=== PATIENT | male | born 1940 | race Caucasian/White ===

== ENCOUNTER 2020-10-27 17:16 | Emergency (ER) | payer MEDICARE, SELFPAY ==
[2020-10-27] VITALS (16 sets, daily range): BP systolic 90–149; BP diastolic 50–81; PULSE 70–98; RESP 12–31; TEMP 35.2; O2SAT 92–100; BMI 22.1
[2020-10-27] MEDS: SODIUM CHLORIDE 0.9% 1,000 ML 1000 ML IV (17:45)
--- NOTE | 2020-10-27 18:04 | ED.WEAKNESS ---
HPI - Weakness General Chief complaint: Weakness Stated complaint: Generalized weakness Time Seen by Provider: 10/27/20 17:24 Source: EMS Mode of arrival: EMS Limitations: altered mental status (confusion) History of Present Illness HPI Narrative: This is an 80-year-old male comes emergency department last seen normal 2 days ago. He is accompanied by his neighbor. Patient [place]. She states that she saw him 2 days ago at that time he was not jaundiced and he has some baseline confusion but is significantly more confused today. They found him on the floor at his home. Patient and his friend state that the he just fell today. Patient does currently have any complaints but told staff earlier that he has felt short of breath. Patient is significantly jaundiced. He currently does not have any complaint of pain at this time. He did tell his neighbor that he had abdominal pain and indicated it was his right side earlier today. Patient currently denies any chest pain, shortness of breath, neck or back pain. He has denied any nausea or vomiting. He has denied any issues with bowel movements or urination. Patient is able to tell me he is at the hospital, he is incorrect and thinks he is at the next down over. Patient states he has not seen a physician in many years and his neighbor believes this to be true. She is not aware of any medical conditions that he has patient states had a tonsillectomy but denies any prior surgeries. He did smoke but quit many years ago. Denies any use of alcohol in ?a long time?. No recreational drugs. 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 He has 2 daughters 1 whom lives locally in [facility]. Per patient's neighbor they have not been in contact for approximately 15 years patient states he does not have anyone that he has designated for a legal proxy or to help make decisions. Related Data Home Medications Medication Instructions Recorded Confirmed No Known Home Medications 10/27/20 10/28/20 Allergies Allergy/AdvReac Type Severity Reaction Status Date / Time No Known Drug Allergies Allergy Verified 10/27/20 17:30 Review of Systems Review of Systems ROS Unobtainable: All systems reviewed & are unremarkable except as noted in HPI and below Patient History Surgical History (Updated 10/27/20 @ 18:23 by Margarita Jacome DO) History of tonsillectomy Social History Smoking Status: Former smoker Smoking Status: Former smoker alcohol intake frequency: other Substance Use Type: does not use Exam Narrative Exam Narrative: GEN: Cachectic appearing jaundiced male, alert and oriented to self and somewhat to location (he knows he is in the hospital but things he is in a town close to [place]), patient appears to be in moderate distress. HEENT: Atraumatic, pupils are equal round reactive to light, extraocular movements are intact, positive for scleral icterus, nares are clear, patient has scleral icterus. He has dry mucous membranes. HEART: Regular rate and rhythm without murmur, clicks, rubs. Pulses are equal in upper and lower extremities LUNGS:Lungs clear to auscultation, no wheezes, rales, crackles, chest moves symmetrically, no tachypnea. ABD:bowel sounds normal, abdomen is small to moderately distended but feels very full and tight, non-tender, no guarding, rebound, rigidity, no masses noted, no hepatosplenomegaly appreciated but difficult to palpate. :No CVA tenderness MSCL: Non-tender, no muscle atrophy, full range of motion of upper extremities. NEURO:CN 2-12 intact, sensation normal SKIN: Jaundiced Initial Vital Signs Initial Vital Signs: Vital Signs Temperature 95.4 F L 10/27/20 17:21 Pulse Rate 83 10/27/20 17:21 Respiratory Rate 18 10/27/20 17:21 Blood Pressure 149/81 H 10/27/20 17:21 Pulse Oximetry 98 10/27/20 17:21 Scores GCS Hernando coma scale eye opening: Spontaneous Gita coma scale verbal response: Confused Hernando coma scale motor response: Obey commands Hernando coma scale total score: 14 Course Orders Ordered: ED Orders 10/27/20 18:19 CT abdomen pelvis wo con Stat 10/27/20 18:20 COVID19 - ADMIT ([employer] swab/PCR) Stat 10/27/20 19:35 US abdomen limited Stat 10/27/20 20:40 Ictotest Urine Stat Urinalysis and Microscopic Stat Urine Culture Stat 10/27/20 22:25 Basic Metabolic Panel Stat Lactate (Lactic Acid) Stat Discontinued Medications Albuterol (Albuterol 2.5 Mg/3 Ml Neb (Adult)) 2.5 mg INH NOW ONE Stop: 10/27/20 22:53 Last Admin: 10/27/20 23:05 Dose: 2.5 mg Documented by: RAMON Dextrose (Dextrose 50 % In Water 25 Gm/50 Ml Syringe) 25 gm IV NOW ONE Stop: 10/27/20 22:53 Last Admin: 10/27/20 23:05 Dose: 25 gm Documented by: RAMON Sodium Chloride (Normal Saline 0.9%) 1,000 mls @ 1,000 mls/hr IV BOLUS ONE Stop: 10/27/20 18:23 Last Infusion: 10/27/20 19:33 Dose: 0 mls/hr Documented by: Admin: 10/27/20 17:45 Dose: 1,000 mls/hr Documented by: STEPAN Sodium Chloride (Normal Saline 0.9%) 1,000 mls @ 100 mls/hr IV CONT ZEKE Last Infusion: 10/28/20 00:01 Dose: 0 mls/hr Documented by: Admin: 10/27/20 20:02 Dose: 100 mls/hr Documented by: STEPAN Piperacillin Sod/Tazobactam (Sod 4.5 gm/ Sodium Chloride) 100 mls @ 200 mls/hr IV NOW ONE Stop: 10/27/20 19:36 Last Infusion: 10/27/20 20:37 Dose: 0 mls/hr Documented by: Admin: 10/27/20 20:05 Dose: 200 mls/hr Documented by: STEPAN Calcium Gluconate 4.65 meq/ (Sodium Chloride) 60 mls @ 180 mls/hr IV NOW ONE Stop: 10/27/20 23:10 Last Infusion: 10/28/20 00:00 Dose: 0 mls/hr Documented by: Admin: 10/27/20 23:12 Dose: 180 mls/hr Documented by: RAMON Insulin Human Regular (Insulin Regular 100 Unit/Ml 3 Ml Vial) 10 unit IV NOW ONE Stop: 10/27/20 22:53 Last Admin: 10/27/20 23:27 Dose: 10 unit Documented by: RAMON Cosigned by: STEPAN Lidocaine HCl (Lidocaine 2% (Glydo) 6 Ml Gel) 6 ml TOP NOW ONE Stop: 10/27/20 19:27 Last Admin: 10/27/20 19:33 Dose: 6 ml Documented by: STEPAN Sodium Polystyrene Sulfonate (Sodium Polystyrene Sulfon/Sorb 15 Gm/60 Ml Cup) 15 gm PO NOW ONE Stop: 10/27/20 22:52 Last Admin: 10/27/20 23:27 Dose: 15 gm Documented by: STEPAN Reevaluation(s) Reevaluation #1: Daughters at bedside. They state they are actually supposed to meet with the lower tomorrow for guardianship. They have seen him in the last month. They state month ago he was skinning and appeared pale but was not jaundiced at that time. They state there is also significant change in his mental status. Time: 20:35 Consultations Consultation #1: Dr. Witt hospitalist at [facility]. Feels patient would be better at larger facility. They have nephrology but if patient wants more aggressive management may need additional interventions they do not have available. Time: 20:58 Consultation #2: Dr. Pryor, from Gastroenterology at [place]. We reviewed patient's labs, imaging and findings from today as well as recent history and physical exam. Mixed picture at this time but feels patient would be appropriate to transfer to [facility]. He is willing to consult on the patient. States that they would prefer to draw any additional labs there to facilitate faster workup. Consultation #3: Dr. Varner, hospitalist at [facility]. Reviewed patients labs, imaging and gastroenterology input. He would like repeat lactate and BMP before accepting for floor. Patient may require ICU care. Called back with lactate trending downward but potassium upward at 5.8 from 5.6. Plan to consult for transfer to ICU. Time: 22:17 Additional Consultation(s): [id number]-Dr. Raygoza accepts for ICU at [facility]. Reviewed labs, imaging and recent history. Vital Signs Vital signs: Vital Signs - 8 hr 10/27/20 19:30 10/27/20 19:37 10/27/20 20:00 Pulse Rate 85 84 84 Respiratory Rate 31 H Blood Pressure 104/55 L Pulse Oximetry 100 10/27/20 21:59 10/27/20 22:00 10/27/20 22:01 Pulse Rate 82 Respiratory Rate Blood Pressure 104/56 L 101/59 L Pulse Oximetry 10/27/20 22:30 10/27/20 23:00 04/09/21 23:07 Pulse Rate 87 86 70 Respiratory Rate 26 H 20 12 Blood Pressure 112/66 101/57 L Pulse Oximetry 99 98 99 10/27/20 23:30 10/28/20 00:00 10/28/20 00:30 Pulse Rate 98 H 98 H 96 H Respiratory Rate 28 H 26 H 25 H Blood Pressure 102/50 L 100/56 L 100/52 L Pulse Oximetry 99 100 98 10/28/20 01:00 Pulse Rate 97 H Respiratory Rate 34 H Blood Pressure 108/56 L Pulse Oximetry 93 MDM - Weakness Lab Data Attestation: I reviewed the patient's lab results. Result diagrams: 10/27/20 17:53 10/27/20 22:25 Labs: Lab Results 10/27/20 10/27/20 10/27/20 Range/Units 17:53 17:53 17:53 WBC 13.9 H (4.5-11.0) X10^3/uL RBC 4.12 L (4.5-5.9) X10^6/uL Hgb 8.6 L (13.5-17.5) g/dL Hct 30.4 L (41-53) % MCV 73.8 L (80-100) fL MCH 21.0 L (26-34) PG MCHC 28.4 L (30-36) % RDW 20.1 H (11.6-14.8) % Plt Count 404 H (150-400) X10^3/uL Neut % (Auto) Not Reportable Lymph % (Auto) Not Reportable [place] % (Auto) Not Reportable Eos % (Auto) Not Reportable Baso % (Auto) Not Reportable Lymph # (Auto) Not Reportable [place] # (Auto) Not Reportable Baso # (Auto) Not Reportable Total Counted 100 Seg Neutrophils % 58.0 (38-70) % Band Neutrophils % 28.0 H (3-7) % Lymphocytes % (Manual) 2.0 L (25-45) % Monocytes % (Manual) 9.0 (2-11) % Metamyelocytes % 3.0 H (-0) % Neutrophils # (Manual) 14350 H (2703-0804) /uL Nucleated RBCs 1 H ( - 0) #/Diff RBC Morphology See below Polychromasia 1+ H Hypochromasia 2+ H Microcytosis 2+ H PT (10.1-12.7) SECONDS INR (0.9-1.3) APTT (26.4-36.2) SECONDS Sodium 131 L (137-145) mmol/L Potassium 5.6 H (3.4-5.1) mmol/L Chloride 100 (98-107) mmol/L Carbon Dioxide 9 L* (22-32) mmol/L BUN 106 H* (9-20) mg/dL Creatinine 5.06 H (0.66-1.25) mg/dL Estimated GFR 11.1 L (>60) mL/min BUN/Creatinine Ratio 20.9 (6-22) Glucose 95 (80-110) mg/dL Lactate (0.7-2.1) mmol/L Calcium 8.7 (8.4-10.2) mg/dL Total Bilirubin 19.4 H (0.2-1.3) mg/dL AST 346 H (17-59) IU/L ALT 85 H (<50) IU/L Alkaline Phosphatase 773 H (38-126) U/L Ammonia 13 (9-30) umol/L Total Creatine Kinase (55-170) U/L CK-MB (CK-2) (<2.37) ng/mL CK-MB (CK-2) Rel Index (1.5-5.0) % Troponin I (0.01-0.034) ng/mL Total Protein 6.3 (6.3-8.2) g/dL Albumin 3.1 L (3.5-5.0) g/dL Globulin 3.2 (1.7-4.1) g/dL Albumin/Globulin Ratio 1.0 (1.0-2.8) Lipase (23-300) U/L Urine Color Urine Appearance Urine pH (4.5-8.0) Ur Specific [place] (1.000-1.035) Urine Protein (Negative) Urine Glucose (UA) (Negative) g/dL Urine Ketones (NEGATIVE) Urine Occult Blood (Negative) Urine Nitrate (Negative) Urine Bilirubin (NEGATIVE) Ur Bilirubin Confirm (Negative) Urine Urobilinogen (0.2) E.U./dL Ur Leukocyte Esterase (NEGATIVE) Urine RBC (0-5/HPF) Urine WBC (0-5/HPF) Ur Squamous Epith Cells (0-5/HPF) Amorphous Sediment Urine Bacteria (None) Granular Casts (None) Urine Mucus (Negative) Ur Culture Indicated? Salicylates (<20) mg/dL Acetaminophen < 10 L (10-30) ug/mL Ethyl Alcohol ( - 10) mg/dL SARS-CoV-2 (PCR) (Negative) 10/27/20 10/27/20 10/27/20 Range/Units 17:53 17:53 17:53 WBC (4.5-11.0) X10^3/uL RBC (4.5-5.9) X10^6/uL Hgb (13.5-17.5) g/dL Hct (41-53) % MCV (80-100) fL MCH (26-34) PG MCHC (30-36) % RDW (11.6-14.8) % Plt Count (150-400) X10^3/uL Neut % (Auto) Lymph % (Auto) [place] % (Auto) Eos % (Auto) Baso % (Auto) Lymph # (Auto) [place] # (Auto) Baso # (Auto) Total Counted Seg Neutrophils % (38-70) % Band Neutrophils % (3-7) % Lymphocytes % (Manual) (25-45) % Monocytes % (Manual) (2-11) % Metamyelocytes % (-0) % Neutrophils # (Manual) (0979-9264) /uL Nucleated RBCs ( - 0) #/Diff RBC Morphology Polychromasia Hypochromasia Microcytosis PT 16.9 H (10.1-12.7) SECONDS INR 1.5 H (0.9-1.3) APTT 29 (26.4-36.2) SECONDS Sodium (137-145) mmol/L Potassium (3.4-5.1) mmol/L Chloride (98-107) mmol/L Carbon Dioxide (22-32) mmol/L BUN (9-20) mg/dL Creatinine (0.66-1.25) mg/dL Estimated GFR (>60) mL/min BUN/Creatinine Ratio (6-22) Glucose (80-110) mg/dL Lactate 8.0 H* (0.7-2.1) mmol/L Calcium (8.4-10.2) mg/dL Total Bilirubin (0.2-1.3) mg/dL AST (17-59) IU/L ALT (<50) IU/L Alkaline Phosphatase (38-126) U/L Ammonia (9-30) umol/L Total Creatine Kinase 580 H (55-170) U/L CK-MB (CK-2) 9.74 H (<2.37) ng/mL CK-MB (CK-2) Rel Index 1.7 (1.5-5.0) % Troponin I < 0.012 (0.01-0.034) ng/mL Total Protein (6.3-8.2) g/dL Albumin (3.5-5.0) g/dL Globulin (1.7-4.1) g/dL Albumin/Globulin Ratio (1.0-2.8) Lipase 1791 H (23-300) U/L Urine Color Urine Appearance Urine pH (4.5-8.0) Ur Specific [place] (1.000-1.035) Urine Protein (Negative) Urine Glucose (UA) (Negative) g/dL Urine Ketones (NEGATIVE) Urine Occult Blood (Negative) Urine Nitrate (Negative) Urine Bilirubin (NEGATIVE) Ur Bilirubin Confirm (Negative) Urine Urobilinogen (0.2) E.U./dL Ur Leukocyte Esterase (NEGATIVE) Urine RBC (0-5/HPF) Urine WBC (0-5/HPF) Ur Squamous Epith Cells (0-5/HPF) Amorphous Sediment Urine Bacteria (None) Granular Casts (None) Urine Mucus (Negative) Ur Culture Indicated? Salicylates < 1.0 (<20) mg/dL Acetaminophen (10-30) ug/mL Ethyl Alcohol < 10 ( - 10) mg/dL SARS-CoV-2 (PCR) (Negative) 10/27/20 10/27/20 10/27/20 Range/Units 18:20 20:15 20:40 WBC (4.5-11.0) X10^3/uL RBC (4.5-5.9) X10^6/uL Hgb (13.5-17.5) g/dL Hct (41-53) % MCV (80-100) fL MCH (26-34) PG MCHC (30-36) % RDW (11.6-14.8) % Plt Count (150-400) X10^3/uL Neut % (Auto) Lymph % (Auto) [place] % (Auto) Eos % (Auto) Baso % (Auto) Lymph # (Auto) [place] # (Auto) Baso # (Auto) Total Counted Seg Neutrophils % (38-70) % Band Neutrophils % (3-7) % Lymphocytes % (Manual) (25-45) % Monocytes % (Manual) (2-11) % Metamyelocytes % (-0) % Neutrophils # (Manual) (8787-2992) /uL Nucleated RBCs ( - 0) #/Diff RBC Morphology Polychromasia Hypochromasia Microcytosis PT (10.1-12.7) SECONDS INR (0.9-1.3) APTT (26.4-36.2) SECONDS Sodium (137-145) mmol/L Potassium (3.4-5.1) mmol/L Chloride (98-107) mmol/L Carbon Dioxide (22-32) mmol/L BUN (9-20) mg/dL Creatinine (0.66-1.25) mg/dL Estimated GFR (>60) mL/min BUN/Creatinine Ratio (6-22) Glucose (80-110) mg/dL Lactate 6.6 H* (0.7-2.1) mmol/L Calcium (8.4-10.2) mg/dL Total Bilirubin (0.2-1.3) mg/dL AST (17-59) IU/L ALT (<50) IU/L Alkaline Phosphatase (38-126) U/L Ammonia (9-30) umol/L Total Creatine Kinase (55-170) U/L CK-MB (CK-2) (<2.37) ng/mL CK-MB (CK-2) Rel Index (1.5-5.0) % Troponin I (0.01-0.034) ng/mL Total Protein (6.3-8.2) g/dL Albumin (3.5-5.0) g/dL Globulin (1.7-4.1) g/dL Albumin/Globulin Ratio (1.0-2.8) Lipase (23-300) U/L Urine Color Dark yellow Urine Appearance Sl cloudy Urine pH 5.0 (4.5-8.0) Ur Specific [place] >=1.030 H (1.000-1.035) Urine Protein Trace H (Negative) Urine Glucose (UA) Negative (Negative) g/dL Urine Ketones Negative (NEGATIVE) Urine Occult Blood Trace-lysed (Negative) Urine Nitrate Negative (Negative) Urine Bilirubin 2+ H (NEGATIVE) Ur Bilirubin Confirm Positive H (Negative) Urine Urobilinogen 0.2 (0.2) E.U./dL Ur Leukocyte Esterase Trace H (NEGATIVE) Urine RBC 0-1/hpf (0-5/HPF) Urine WBC 1-5/hpf (0-5/HPF) Ur Squamous Epith Cells 0-1 /hpf (0-5/HPF) Amorphous Sediment 2+ Urine Bacteria Few (2-10) H (None) Granular Casts 0-1/lpf (None) Urine Mucus 2+ H (Negative) Ur Culture Indicated? Specimen cultured Salicylates (<20) mg/dL Acetaminophen (10-30) ug/mL Ethyl Alcohol ( - 10) mg/dL SARS-CoV-2 (PCR) Negative (Negative) 10/27/20 10/27/20 Range/Units 22:25 22:25 WBC (4.5-11.0) X10^3/uL RBC (4.5-5.9) X10^6/uL Hgb (13.5-17.5) g/dL Hct (41-53) % MCV (80-100) fL MCH (26-34) PG MCHC (30-36) % RDW (11.6-14.8) % Plt Count (150-400) X10^3/uL Neut % (Auto) Lymph % (Auto) [place] % (Auto) Eos % (Auto) Baso % (Auto) Lymph # (Auto) [place] # (Auto) Baso # (Auto) Total Counted Seg Neutrophils % (38-70) % Band Neutrophils % (3-7) % Lymphocytes % (Manual) (25-45) % Monocytes % (Manual) (2-11) % Metamyelocytes % (-0) % Neutrophils # (Manual) (6506-9810) /uL Nucleated RBCs ( - 0) #/Diff RBC Morphology Polychromasia Hypochromasia Microcytosis PT (10.1-12.7) SECONDS INR (0.9-1.3) APTT (26.4-36.2) SECONDS Sodium 133 L (137-145) mmol/L Potassium 5.8 H (3.4-5.1) mmol/L Chloride 102 (98-107) mmol/L Carbon Dioxide 10 L (22-32) mmol/L BUN 109 H* (9-20) mg/dL Creatinine 5.16 H (0.66-1.25) mg/dL Estimated GFR 10.8 L (>60) mL/min BUN/Creatinine Ratio 21.1 (6-22) Glucose 80 (80-110) mg/dL Lactate 5.5 H* (0.7-2.1) mmol/L Calcium 7.9 L (8.4-10.2) mg/dL Total Bilirubin (0.2-1.3) mg/dL AST (17-59) IU/L ALT (<50) IU/L Alkaline Phosphatase (38-126) U/L Ammonia (9-30) umol/L Total Creatine Kinase (55-170) U/L CK-MB (CK-2) (<2.37) ng/mL CK-MB (CK-2) Rel Index (1.5-5.0) % Troponin I (0.01-0.034) ng/mL Total Protein (6.3-8.2) g/dL Albumin (3.5-5.0) g/dL Globulin (1.7-4.1) g/dL Albumin/Globulin Ratio (1.0-2.8) Lipase (23-300) U/L Urine Color Urine Appearance Urine pH (4.5-8.0) Ur Specific [place] (1.000-1.035) Urine Protein (Negative) Urine Glucose (UA) (Negative) g/dL Urine Ketones (NEGATIVE) Urine Occult Blood (Negative) Urine Nitrate (Negative) Urine Bilirubin (NEGATIVE) Ur Bilirubin Confirm (Negative) Urine Urobilinogen (0.2) E.U./dL Ur Leukocyte Esterase (NEGATIVE) Urine RBC (0-5/HPF) Urine WBC (0-5/HPF) Ur Squamous Epith Cells (0-5/HPF) Amorphous Sediment Urine Bacteria (None) Granular Casts (None) Urine Mucus (Negative) Ur Culture Indicated? Salicylates (<20) mg/dL Acetaminophen (10-30) ug/mL Ethyl Alcohol ( - 10) mg/dL SARS-CoV-2 (PCR) (Negative) Imaging Data CT scan - abdomen/pelvis: Radiologist Impression: [facility], [place] [address]LU Scan ReportSigned Patient: Sahil Ridley EMR#: [id number]: 1940cct:[id number]/Sex: 80 / MDate of Service: 10/27/20Loc: EDAccession Number: [id number] Procedure: CT abdomen pelvis wo con Ordering Provider: Margarita Jacome D.O. PROCEDURE: CT ABDOMEN PELVIS WO CON INDICATIONS: jaundice, abd pain, weakness, sob. TECHNIQUE: Noncontrast 5 mm thick sections acquired from the diaphragms to the symphysis. 5 mm coronal and sagittal reformats were then performed. For radiation dose reduction, the following was used: automated exposure control, adjustment of mA and/or kV according to patient size. COMPARISON: None. FINDINGS: Image quality: Excellent. ABDOMEN: Lung bases: Lung bases are clear. Heart size is normal. Pes cavus is noted. Solid organs: Heterogeneous hypoattenuation of the liver is noted. The liver is enlarged, measuring up to 20 cm in craniocaudal extent. Gallbladder is poorly visualized and appears contracted. Coarse calcifications throughout the pancreas are compatible with chronic pancreatitis. Spleen is normal in size. No adrenal nodules. Kidneys are normal in size, without hydronephrosis or nephrolithiasis. Peritoneum and bowel: Unenhanced bowel loops demonstrate normal wall thickness and caliber. A small amount of ascites is seen in the abdomen and pelvis. No pneumoperitoneum. Nodes and vessels: No retroperitoneal or mesenteric adenopathy by size criteria. Aorta and inferior vena cava are normal in caliber. Moderate atherosclerotic calcifications are seen in the aorta. Miscellaneous: No ventral hernias. PELVIS: Genitourinary: Bladder wall thickness is normal. Miscellaneous: No inguinal hernias or adenopathy. Bones: No suspicious bony lesions. There is generalized osteopenia. A prominent Schmorl's node is seen at the inferior endplate of L3. Mild multilevel degenerative changes are seen throughout the spine. IMPRESSION: 1. Enlarged and heterogeneously hypoattenuating appearance of the liver is nonspecific and may be related to diffuse fatty infiltration versus an acute or chronic infectious or inflammatory process including hepatitis, early cirrhotic changes, or less likely diffuse metastatic disease. Recommend correlation with clinical findings and history. 2. Small volume of ascites throughout the abdomen and pelvis. 3. Coarse calcifications in the pancreas are compatible with chronic pancreatitis. Dictated by: Hunter Rodrigues M.D. on 10/27/2020 at 19:15 Approved by: Hunter Rodrigues M.D. on 10/27/2020 at 19:24 US - abdomen: Radiologist Impression: [facility] [place] [id number] ReportSigned Patient: Sahil Ridley EMR#: [id number]: 1940cct:[id number]/Sex: 80 / MDate of Service: 10/27/20Loc: EDAccession Number: [id number] Procedure: US abdomen limited Ordering Provider: Margarita Jacome D.O. PROCEDURE: US ABDOMEN LIMITED INDICATIONS: SEVERE JAUNDICE TECHNIQUE: Real-time scanning was performed of the abdominal and retroperitoneal organs, with image documentation. COMPARISON: [facility], CT, CT ABDOMEN PELVIS WO CON, 10/27/2020, 18:47. FINDINGS: Liver: The liver is enlarged, measuring 22.9 cm in maximum dimension. Diffusely heterogeneous and micronodular appearance of the liver is noted. There is hepatopetal flow in the main portal vein. Enlarged lymph nodes are seen in the leeroy hepatis measuring up to 1.7 cm in short axis diameter. Gallbladder: Gallbladder wall thickening is most likely related to contraction of the gallbladder. No gallstones are seen. Sonographic Foster sign is negative. Biliary ducts: Intrahepatic bile ducts are non-dilated. The extrahepatic bile ducts are not well visualized. Pancreas: Not well visualized Miscellaneous: A small amount of ascites is seen in the upper abdomen. IMPRESSION: 1. Enlarged and heterogeneous appearance of the liver is of uncertain etiology. Findings may be related to hepatitis, innumerable hepatic metastases, or involvement with a granulomatous disease or chronic fungal infection. 2. Enlarged lymph nodes in the leeroy hepatis may be reactive or malignant. 3. Small amount of ascites in the upper abdomen. Dictated by: Hunter Rodrigues M.D. on 10/27/2020 at 20:47 Approved by: Hunter Rodrigues M.D. on 10/27/2020 at 20:56 ECG Data Attestation: I personally reviewed and interpreted this ECG as follows: Prior ECG tracings: not available for review Interpretation: NSR with occasional premature SVC with occasional PVC. Left atrial enlargement, rightward axis, prolonged QT., rate 98, pr 154, qrs of 72, qtc 487. No priors available. MDM Narrative Medical decision making narrative: This is an 80-year-old male comes to the emergency department for generalized weakness and jaundice. Patient's family noted that he was on the floor he was last seen normal 2 days before but patient and neighbor as well as daughters all state that he has not been on the floor more than today. Patient does not have any obvious trauma. He does not have any known medical issues but has not seen a doctor any very long time. Per patient, family and friend all deny any chronic alcohol use. Liver failure with his significantly elevated bilirubin, ammonia is in normal range. Patient also has pancreatitis, acute renal failure with hyperkalemia with a potassium of 5.6 initially. These were repeated and the potassium has trended up slightly. Patient has had minimal urine output. He does appear clinically dry he has been given fluids judiciously and these were increased. Patient's lactate has been slowly trending downward from 8-6 0.6-5.5. He does appear to have an anemia with a hemoglobin of 8 which appears microcytic, platelets are 404 with a leukocytosis. Patient does have a bandemia of 28, he also has metamyelocytes noted as well. Toxicology is negative for salicylates, acetaminophen or alcohol. COVID is negative. Hepatitis panel is pending but is a send out lab here at this hospital. Patient's imaging shows possible cirrhosis versus metastatic disease verses possible infectious cause. Common bile duct was not well visualized on ultrasound, no stone was noted on the duct on the CT. Patient did have a complaint to his neighbor earlier today of right upper quadrant pain. Was started on Zosyn for possible cholangitis. Discussed with patient he elects for aggressive measures at this time. His daughters who he was estranged from until recently are present in the department. He does not have any other children or spouse. They are aware that the patient is critically ill. Critical Care Time Critical Care Time Critical Care Time: Yes Total Critical Care Time: 145 Attestation: The high probability of a clinically significant, sudden or life threatening deterioration of the [cardiac, pulm] system(s) required my full and direct attention, intervention and personal management. The aggregate critical care time was [145] minutes. This time is in addition to time spent performing reported procedures but includes the following: [x] Data Review and interpretation [x] Patient assessment and monitoring of vital signs [x] Documentation [x] Medication orders and management Discharge Plan [facility] Impression: Acute kidney failure, Anemia, Acute hepatic failure, Acidosis, lactic, Acute pancreatitis Prescriptions: No Action No Known Home Medications RF: 0
[2020-10-27 18:09] LABS: Hematocrit 30.4 % (41-53); Hemoglobin 8.6 g/dL (13.5-17.5); Mean Corpuscular HGB Conc 28.4 % (30-36); Mean Corpuscular Volume 73.8 fL (80-100); Platelet Count 404 X10^3/uL (150-400); Red Blood Cell Count 4.12 X10^6/uL (4.5-5.9); Red Cell Distribution Width 20.1 % (11.6-14.8); White Blood Cell Count 13.9 X10^3/uL (4.5-11.0)
[2020-10-27 18:14] LABS: Ammonia (NH3) 13 umol/L (9-30); Creatine Kinase 580 U/L (55-170); Ethanol (ETOH) < 10 mg/dL; Lipase 1791 U/L (23-300); Salicylate < 1.0 mg/dL (<20)
[2020-10-27 18:15] LABS: Acetaminophen < 10 ug/mL (10-30); Albumin 3.1 g/dL (3.5-5.0); Alkaline Phosphatase 773 U/L (38-126); Aspartate Aminotransferase 346 IU/L (17-59); BUN Creatinine Ratio 20.9 (6-22); Bilirubin Total 19.4 mg/dL (0.2-1.3); Calcium 8.7 mg/dL (8.4-10.2); Chloride 100 mmol/L (98-107); Estimated Glomerular Filt Rate 11.1 mL/min (>60); Globulin 3.2 g/dL (1.7-4.1); Glucose 95 mg/dL (80-110); HEMOLYSIS < 15 (0-50); Sodium 131 mmol/L (137-145); Total Protein 6.3 g/dL (6.3-8.2)
--- NOTE | 2020-10-27 18:19 | DI.CT.S_ITS ---
PROCEDURE: CT ABDOMEN PELVIS WO CON INDICATIONS: jaundice, abd pain, weakness, sob. TECHNIQUE: Noncontrast 5 mm thick sections acquired from the diaphragms to the symphysis. 5 mm coronal and sagittal reformats were then performed. For radiation dose reduction, the following was used: automated exposure control, adjustment of mA and/or kV according to patient size. COMPARISON: None. FINDINGS: Image quality: Excellent. ABDOMEN: Lung bases: Lung bases are clear. Heart size is normal. Pes cavus is noted. Solid organs: Heterogeneous hypoattenuation of the liver is noted. The liver is enlarged, measuring up to 20 cm in craniocaudal extent. Gallbladder is poorly visualized and appears contracted. Coarse calcifications throughout the pancreas are compatible with chronic pancreatitis. Spleen is normal in size. No adrenal nodules. Kidneys are normal in size, without hydronephrosis or nephrolithiasis. Peritoneum and bowel: Unenhanced bowel loops demonstrate normal wall thickness and caliber. A small amount of ascites is seen in the abdomen and pelvis. No pneumoperitoneum. Nodes and vessels: No retroperitoneal or mesenteric adenopathy by size criteria. Aorta and inferior vena cava are normal in caliber. Moderate atherosclerotic calcifications are seen in the aorta. Miscellaneous: No ventral hernias. PELVIS: Genitourinary: Bladder wall thickness is normal. Miscellaneous: No inguinal hernias or adenopathy. Bones: No suspicious bony lesions. There is generalized osteopenia. A prominent Schmorl's node is seen at the inferior endplate of L3. Mild multilevel degenerative changes are seen throughout the spine. IMPRESSION: 1. Enlarged and heterogeneously hypoattenuating appearance of the liver is nonspecific and may be related to diffuse fatty infiltration versus an acute or chronic infectious or inflammatory process including hepatitis, early cirrhotic changes, or less likely diffuse metastatic disease. Recommend correlation with clinical findings and history. 2. Small volume of ascites throughout the abdomen and pelvis. 3. Coarse calcifications in the pancreas are compatible with chronic pancreatitis. Dictated by: Hunter Rodrigues M.D. on 10/27/2020 at 19:15 Approved by: Hunter Rodrigues M.D. on 10/27/2020 at 19:24
[2020-10-27 18:21] LABS: Alanine Aminotransferase 85 IU/L (<50)
[2020-10-27 18:26] LABS: Troponin I < 0.012 ng/mL (0.01-0.034)
[2020-10-27 18:29] LABS: CKMB % Relative Index 1.7 % (1.5-5.0); Creatine Kinase MB 9.74 ng/mL (<2.37)
[2020-10-27 18:32] LABS: Potassium 5.6 mmol/L (3.4-5.1)
[2020-10-27 18:33] LABS: Add Manual Diff / Slide Review YES
[2020-10-27 18:34] LABS: Blood Urea Nitrogen 106 mg/dL (9-20); Carbon Dioxide 9 mmol/L (22-32)
[2020-10-27 19:01] LABS: Hypochromasia 2+; Microcytosis 2+; Neutrophils Absolute Manual 11954 /uL (3000-5900); Nucleated Red Blood Cells 1 #/Diff; Polychromasia 1+; Total Cells Counted 100
[2020-10-27 19:22] LABS: COVID19 - ADMIT (NP swab/PCR) Negative (Negative)
[2020-10-27] MEDS: LIDOCAINE 2% (GLYDO) 6 ML GEL TOP (19:33)
--- NOTE | 2020-10-27 19:35 | DI.US.S_ITS ---
PROCEDURE: US ABDOMEN LIMITED INDICATIONS: SEVERE JAUNDICE TECHNIQUE: Real-time scanning was performed of the abdominal and retroperitoneal organs, with image documentation. COMPARISON: [facility], CT, CT ABDOMEN PELVIS WO CON, 10/27/2020, 18:47. FINDINGS: Liver: The liver is enlarged, measuring 22.9 cm in maximum dimension. Diffusely heterogeneous and micronodular appearance of the liver is noted. There is hepatopetal flow in the main portal vein. Enlarged lymph nodes are seen in the leeroy hepatis measuring up to 1.7 cm in short axis diameter. Gallbladder: Gallbladder wall thickening is most likely related to contraction of the gallbladder. No gallstones are seen. Sonographic Foster sign is negative. Biliary ducts: Intrahepatic bile ducts are non-dilated. The extrahepatic bile ducts are not well visualized. Pancreas: Not well visualized Miscellaneous: A small amount of ascites is seen in the upper abdomen. IMPRESSION: 1. Enlarged and heterogeneous appearance of the liver is of uncertain etiology. Findings may be related to hepatitis, innumerable hepatic metastases, or involvement with a granulomatous disease or chronic fungal infection. 2. Enlarged lymph nodes in the leeroy hepatis may be reactive or malignant. 3. Small amount of ascites in the upper abdomen. Dictated by: Hunter Rodrigues M.D. on 10/27/2020 at 20:47 Approved by: Hunter Rodrigues M.D. on 10/27/2020 at 20:56
[2020-10-27 19:40] LABS: INR 1.5 (0.9-1.3); Prothrombin Time 16.9 SECONDS (10.1-12.7)
[2020-10-27 19:42] LABS: PTT Partial Thromboplastin Tim 29 SECONDS (26.4-36.2)
[2020-10-27 19:58] LABS: Reflexed Lactate in 2 Hours Y
[2020-10-27] MEDS: SODIUM CHLORIDE 0.9% 1,000 ML 100 ML IV (20:02)
[2020-10-27] MEDS: PIPERACILLIN/TAZO 4.5 GM in SODIUM CHLORIDE 0.9% 100 ML 200 ML IV (20:05)
--- NOTE | 2020-10-27 20:45 | PC.NURSE ---
Pt arrived with severe jaundice
[2020-10-27 20:46] LABS: Lactate 2HR (Lactic Acid Rflx) 6.6 mmol/L (0.7-2.1)
[2020-10-27 20:52] LABS: Appearance Urine UA SL CLOUDY; Bilirubin Urine UA 2+ (NEGATIVE); Glucose Urine UA NEGATIVE (Negative); Ketones Urine UA NEGATIVE (NEGATIVE); Leukocyte Esterase Urine UA TRACE (NEGATIVE); Nitrite Urine UA NEGATIVE (Negative); Occult Blood Urine UA TRACE-LYSED (Negative); Protein Urine UA TRACE (Negative); Specific Gravity Urine UA >=1.030 (1.000-1.035); Urobilinogen Urine UA 0.2 E.U./dL (0.2)
[2020-10-27 20:54] LABS: Color Urine UA Dark Yellow
[2020-10-27 20:59] LABS: Amorphous Sediment Urine 2+; Bacteria Urine Few (2-10); Granular Casts Urine 0-1/LPF; Ictotest Urine Positive (Negative); RBC Urine 0-1/HPF (0-5/HPF); Squamous Epithelial Cell Urine 0-1 /HPF (0-5/HPF); WBC Urine 1-5/HPF (0-5/HPF)
[2020-10-27 21:00] LABS: Culture Indicated Urine Specimen Cultured; Mucus Urine 2+ (Negative)
[2020-10-27 22:43] LABS: BUN Creatinine Ratio 21.1 (6-22); Calcium 7.9 mg/dL (8.4-10.2); Carbon Dioxide 10 mmol/L (22-32); Chloride 102 mmol/L (98-107); Estimated Glomerular Filt Rate 10.8 mL/min (>60); Glucose 80 mg/dL (80-110); HEMOLYSIS < 15 (0-50); Sodium 133 mmol/L (137-145)
[2020-10-27 22:44] LABS: Lactate (Lactic Acid) 5.5 mmol/L (0.7-2.1)
[2020-10-27 22:45] LABS: Potassium 5.8 mmol/L (3.4-5.1)
[2020-10-27 22:47] LABS: Blood Urea Nitrogen 109 mg/dL (9-20)
[2020-10-27] MEDS: DEXTROSE 50 % IN WATER 25 GM/50 ML SYRINGE IV (23:05)
[2020-10-27] MEDS: ALBUTEROL 2.5 MG/3 ML NEB (ADULT) INH (23:05)
[2020-10-27] MEDS: CALCIUM GLUCONATE 4.65 MEQ in SODIUM CHLORIDE 0.9% 50 ML 180 ML IV (23:12)
[2020-10-27] MEDS: INSULIN REGULAR 100 UNIT/ML 3 ML VIAL 10 UNIT IV (23:27)
[2020-10-27] MEDS: SODIUM POLYSTYRENE SULFON/SORB 15 GM/60 ML CUP PO (23:27)
[2020-10-28] VITALS: BP 100/56; PULSE 98; RESP 26; O2SAT 100
[2020-10-28 00:29] LABS: Reflexed Lactate in 2 Hours Y
[2020-10-28 00:30] VITALS: BP 100/52; PULSE 96; RESP 25; O2SAT 98
--- NOTE | 2020-10-28 00:47 | PC.NURSE ---
Report given to Bernardino BUTLER at [place].
[2020-10-28 01:00] VITALS: BP 108/56; PULSE 97; RESP 34; O2SAT 93
--- NOTE | 2020-10-28 01:41 | PC.NURSE ---
Concern for blocked green, attempted to flush but no return of fluid. Changed green catheter to another 16 [place]. Still no return bladder scan showed 55ml's.
--- NOTE | 2020-10-28 01:48 | PC.NURSE ---
area to sacrum is reddened and blanches with palp.
[2020-10-28 20:15] LABS: Enterococcus species Not Detected (Not Detect); Listeria monocytogenes Detected (Not Detect); Vancomycin-rest genes A/B Not Detected (Not Detect)
[2020-10-28 20:16] LABS: Acinetobacter baumannii Not Detected (Not Detect); Candida albicans Not Detected (Not Detect); Candida glabrata Not Detected (Not Detect); Candida krusei Not Detected (Not Detect); Candida parapsilosis Not Detected (Not Detect); Candida tropicalis Not Detected (Not Detect); E. coli Not Detected (Not Detect); Enterobacter cloacae complex Not Detected (Not Detect); Enterobacteriaceae species Not Detected (Not Detect); Haemophilus influenzae Not Detected (Not Detect); KPC (carbapenem-resist gene) Not Detected (Not Detect); Methicillin-resistant gene Not Detected (Not Detect); Neisseria meningitidis Not Detected (Not Detect); Proteus species Not Detected (Not Detect); Pseudomonas aeruginosa Not Detected (Not Detect); Serratia marcescens Not Detected (Not Detect); Staphylococcus species Not Detected (Not Detect); Streptococcus agalactiae (Gr B Not Detected (Not Detect); Streptococcus pneumonia Not Detected (Not Detect); Streptococcus pyogenes (Gr A) Not Detected (Not Detect); Streptococcus species Not Detected (Not Detect)
[2020-10-30 06:57] LABS: HBsAg Screen Negative (Negative); Hepatitis A Antibody IgM Negative (Negative); Hepatitis B Core Antibody IgM Negative (Negative); Hepatitis C Antibody <0.1 s/co ratio (0.0-0.9)
== END 2020-10-28 01:40 | disposition short-term general hospital (02) ==
PROVIDERS: Emergency Medicine; Emergency Provider Emergency Medicine
DX: K72.00 Acute and subacute hepatic failure without coma (principal); K85.90 Acute pancreatitis without necrosis or infection, unspecified; N17.9 Acute kidney failure, unspecified; E87.2 Acidosis; D64.9 Anemia, unspecified; E87.5 Hyperkalemia; Z20.822 Contact with and (suspected) exposure to COVID-19
CPT/HCPCS: 36415; 51701; 74176; 76705; 80048; 80053; 80074; 80320; 80329; 81001; 82140; 82550; 82553; 83605; 83690; 84484; 85007; 85025; 85610; 85730; 87040; 87086; 87150; 87205; 87635; 93005; 94640; 96361; 96365; 96367; 96375; 99285; 99291; 99292; C9803; G0480; J0610; J2543; J7613